=== PATIENT | male | born 1945 ===

== ENCOUNTER 2020-02-26 07:09 | Day surgery (SDC) | payer MEDICARE, BC ==
[2020-02-25 11:44] VITALS: BMI 26.6
[~2020-02-26 07:09] MED LIST: LACTATED RINGERS 1,000 ML IV SCH
[2020-02-26 07:44] VITALS: RESP 16; TEMP 98.8
[2020-02-26] MEDS ORDERED: PROPOFOL 10 MG/ML 20 ML VIAL IV ONE (09:02)
[2020-02-26] MEDS ORDERED: MIDAZOLAM 2 MG/2 ML VIAL ONE (09:02)
--- NOTE | 2020-02-26 09:39 | P.PCN ---
Date of Procedure: 02/26/20 Procedure(s) Performed: Brief history: Patient is a pleasant 71-year-old white male scheduled for an elective upper endoscopy as well as colonoscopy as a part of evaluation of black stool epigastric pain that lasted for 3 days. He was on Prilosec 20 mg daily and symptoms are significantly improved. Procedure performed: Esophagogastroduodenoscopy with biopsy Colonoscopy Preoperative diagnosis: Anesthesia: MAC Procedure: After informed consent was obtained from the patient was brought into the endos copy unit and IV sedation was administered by anesthesia under continuous monitoring. Initially upper endoscopy was done. The Olympus GF 160 video endoscope was inserted inserted into the mouth and esophagus intubated without any difficulty and was gradually advanced into the stomach and duodenum and carefully examined. The bulb of the duodenum appeared normal. In the second part of the duodenum along the medial side there was a 2 cm flat polyp noted which was biopsied. The scope was then withdrawn into the stomach adequately insufflated with air and upon careful examination the antrum and body, cardia and fundus appeared normal. The scope was then withdrawn into the esophagus. The GE junction was located at 40 cm to the incisors. It appeared regular with no erythema erosions or ulcerations. Rest of the esophagus appeared normal. Patient tolerated the procedure well. At this time the patient continued to remain sedation. Initial digital rectal examination was normal. Olympus CF 160 video colonoscope was then inserted into the rectum and gradually advanced to the cecum without any difficulty. Careful examination was performed as the scope was gradually being withdrawn. The prep was excellent. The cecum, ascending colon, transverse colon, descending colon, sigmoid colon and rectum appeared normal. Retroflexion was performed in the rectum and no lesions were noted. Patient tolerated the procedure well. Impression: 1. Upper endoscopy revealed 2 cm flat duodenal polyp along the second part of the duodenum status post multiple biopsies 2. Colonoscopy revealed scattered sigmoid diverticulosis but no evidence of colorectal neoplasia Recommendations: Findings of this examination were discussed with the patient as well as his family. He was advised to follow with the biopsy results and he'll be seen in office in 2 weeks. He can have a repeat screening colonoscopy in 10 years
[2020-02-26 10:03] VITALS: BP 129/80; PULSE 75
== END 2020-02-26 11:02 | disposition home or self-care (01) ==
LOC: ORWHC2ENDO 07:09
PROVIDERS: ATTEND Internal Medicine Gastroenterology
DX: K57.31 Diverticulosis of large intestine without perforation or abscess with bleeding (principal); K31.7 Polyp of stomach and duodenum; D64.9 Anemia, unspecified; E78.5 Hyperlipidemia, unspecified; Z79.899 Other long term (current) drug therapy; Z97.2 Presence of dental prosthetic device (complete) (partial); Z98.890 Other specified postprocedural states
CPT/HCPCS: 88305; 45378; 43239; J2250; J2704

== ENCOUNTER → 2022-09-13 | Outpatient (CLI) | payer MEDICARE, BC ==
[2022-09-13 21:35] LABS: African American GFR (CKD) 96.5 (60.0-200.0); Albumin 4.3 g/dL (3.8-4.9); Albumin/Globulin Ratio 1.65 (1.60-3.17); Anion Gap 10.4 mmol/L (10.00-18.00); BUN/Creat Ratio 13.67 Ratio (12.00-20.00); Blood Urea Nitrogen 12.3 mg/dL (9.0-27.0); Carbon Dioxide 28.6 mmol/L (20.0-27.5); Globulin 2.6 g/dL (1.6-3.3); Non-African American GFR(CKD) 83.3 (60.0-200.0); Potassium 4.2 mmol/L (3.5-5.5); Total Bilirubin 0.4 mg/dL (0.30-1.20); Total Protein 6.9 g/dL (6.2-8.2)
== END | disposition home or self-care (01) ==
LOC: LABWHC1 13:35
PROVIDERS: ATTEND Family Medicine
DX: E78.5 Hyperlipidemia, unspecified (principal)
CPT/HCPCS: 36415; 80053

== ENCOUNTER → 2024-01-23 | Outpatient (CLI) | payer MEDICARE, BC | END | disposition home or self-care (01) | LOC: LABPRL 10:17 | PROVIDERS: ATTEND Urology | DX: R97.20 Elevated prostate specific antigen [PSA] (principal) | CPT/HCPCS: 84153 ==